=== PATIENT | male | born 1960 | race African-American/Black ===

== ENCOUNTER 2018-07-27 09:57 | Outpatient (CLI) | payer MEDICARE, MEDICAID ==
[~2018-07-27 09:57] MED LIST: ALLO100T30 PO; ALLO300T PO; AMOX500T PO; ASCO500T8 PO; B1/B1TAB2 PO; BACL-19 PO; BACL20TA PO; CARV3.122 PO; CARV6.252 PO; CEFU250T66 PO; CRAN405C PO; DOCU100T6 PO; FURO-92 PO; FURO80TA3 PO; FURO80TA77 PO; HYDR-3341 PO; IBUP-1484 PO; ISOS10TA2 PO; ISOS10TA6 PO; LOVA20TA2 PO; METO2.5T PO; MULT-658 PO; SPIR25TA5 PO; TRAM50TA2 PO
== END 2018-07-27 23:59 | disposition home or self-care (01) ==
LOC: WOUND 09:57
PROVIDERS: ATTEND Internal Medicine
DX: L89.44 Pressure ulcer of contiguous site of back, buttock and hip, stage 4 (principal); L98.495 Non-pressure chronic ulcer of skin of other sites with muscle involvement without evidence of necrosis; L98.412 Non-pressure chronic ulcer of buttock with fat layer exposed; L98.492 Non-pressure chronic ulcer of skin of other sites with fat layer exposed; M46.28 Osteomyelitis of vertebra, sacral and sacrococcygeal region; G82.51 Quadriplegia, C1-C4 complete; I11.0 Hypertensive heart disease with heart failure; I50.9 Heart failure, unspecified; E78.5 Hyperlipidemia, unspecified; M10.9 Gout, unspecified; I42.9 Cardiomyopathy, unspecified; I25.10 Atherosclerotic heart disease of native coronary artery without angina pectoris
CPT/HCPCS: 11042; 11043; 11045; 97597; 97598; 97608; G0463; 97606

== ENCOUNTER 2018-08-10 10:10 | Outpatient (CLI) | payer MEDICARE, MEDICAID | END 2018-08-10 23:59 | disposition home or self-care (01) | LOC: WOUND 10:10 | PROVIDERS: ATTEND Internal Medicine | DX: L89.44 Pressure ulcer of contiguous site of back, buttock and hip, stage 4 (principal); L89.154 Pressure ulcer of sacral region, stage 4; L89.104 Pressure ulcer of unspecified part of back, stage 4; L89.224 Pressure ulcer of left hip, stage 4; G82.51 Quadriplegia, C1-C4 complete; I11.0 Hypertensive heart disease with heart failure; I50.9 Heart failure, unspecified; E78.5 Hyperlipidemia, unspecified; I42.9 Cardiomyopathy, unspecified; M10.9 Gout, unspecified; M46.28 Osteomyelitis of vertebra, sacral and sacrococcygeal region; I25.10 Atherosclerotic heart disease of native coronary artery without angina pectoris | CPT/HCPCS: 11043; 97597; 97598; 97605 ==

== ENCOUNTER → 2018-08-31 | Outpatient (CLI) | payer MEDICARE, MEDICAID | END | disposition home or self-care (01) | LOC: WOUND 10:15 | PROVIDERS: ATTEND Internal Medicine | DX: L89.224 Pressure ulcer of left hip, stage 4 (principal); L89.313 Pressure ulcer of right buttock, stage 3; L89.153 Pressure ulcer of sacral region, stage 3; L89.102 Pressure ulcer of unspecified part of back, stage 2; L89.44 Pressure ulcer of contiguous site of back, buttock and hip, stage 4; M46.28 Osteomyelitis of vertebra, sacral and sacrococcygeal region; G82.51 Quadriplegia, C1-C4 complete; I11.0 Hypertensive heart disease with heart failure; I50.9 Heart failure, unspecified; M10.9 Gout, unspecified; E78.5 Hyperlipidemia, unspecified; I42.9 Cardiomyopathy, unspecified; I25.10 Atherosclerotic heart disease of native coronary artery without angina pectoris | CPT/HCPCS: 97597; 97598 ==